=== PATIENT | female | born 1955 ===

== ENCOUNTER 2016-11-20 05:47 | Inpatient (IN) | payer OTHER ==
[~2016-11-20] VITALS: Ht 165.1 cm; Wt 98.9 kg
[2016-11-20] VITALS (29 sets, daily range): BP systolic 89–157; BP diastolic 52–99
[~2016-11-20 05:47] MED LIST: AMLODIPINE PO; NORCO 10-325 T1 EACH ORAL
[2016-11-20] MEDS ORDERED: Bacitracin 50000 Units Vial ONE ×2 (07:12→10:51)
[2016-11-20] MEDS ORDERED: NeoSporin Gu Irrig 1ml Amp IRRIG ONE ×2 (07:12→10:51)
--- NOTE | 2016-11-20 07:16 | Pre-Procedure Note/Attestation ---
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 I attest that, if there was a reasonable possibility of needing a blood transfusion, the patient (or the patient's legal claims representative) was given the [facility] standardized written summary, pursuant to the [place] Blood Safety Act ([place] Health and Safety Code # 1645, as amended). I attest that I re-evaluated the patient just prior to the surgery and that there has been no change in the patient's H&P, except as documented below: MARTHA JOHNSON Nov 20, 2016 07:16
[2016-11-20] MEDS ORDERED: LR 1000ml 1,000 ML IVLG SCH ×2 (08:18→13:00)
--- NOTE | 2016-11-20 08:24 | Anethesia Preoperative Eval ---
Anesthesia Pre-op PMH/ROS General Date of Evaluation: Nov 20, 2016 Time of Evaluation: 07:15 Anesthesiologist: Darrick ASA Score: ASA 2 Mallampati Score Class I : Soft palate, uvula, fauces, pillars visible Class II: Soft palate, uvula, fauces visible Class III: Soft palate, base of uvula visible Class IV: Only hard plate visible Mallampati Classification: Class II Surgeon: Morelia Diagnosis: Osteoarthritis Surgical Procedure: Total knee arthroplasty right knee Family History: no anesthesia problems Allergies: Coded Allergies: TRAMADOL (Verified Allergy, Intermediate, 11/20/16) RAPID HEART RATE AND DIFFICULTY BREATHING Medications: see eMAR Past Medical History Cardiovascular: Reports: HTN, Denies: CAD, [place], valve dz, arrhythmia, other Pulmonary: Denies: asthma, COPD, KAIN, other Gastrointestinal/Genitourinary: Denies: GERD, CRI, ESRD, other Neurologic/Psychiatric: Denies: dementia, CVA, depression/anxiety, TIA, other Endocrine: Denies: DM, hypothyroidism, steroids, other HEENT: Denies: cataract (L), cataract (R), glaucoma, [place] (L), [place] (R), other Hematology/Immune: Denies: anemia, DVT, bleeding disorder, other Musculoskeletal/Integumentary: Reports: DJD, Denies: OA, RA, DDD, edema, other PMH Narrative: DJD, HTN PSxH Narrative: Bilateral knee scope, right shoulder surgery Anesthesia Pre-op Phys. Exam Physician Exam Last Vital Signs Date Time Temp Pulse Resp B/P (MAP) Pulse Ox O2 Delivery O2 Flow Rate FiO2 11/20/16 06:25 97.8 70 18 135/84 93 Room Air Constitutional: NAD Neurologic: CN 2-12 intact Cardiovascular: RRR, no M/R/G Respiratory: CTA Gastrointestinal: S/NT/ND Airway Exam Mallampati Score: Class II MO: full ROM: full Teeth: intact Anesthesia Pre-op A/P Labs Within normal limits Studies Pre-op Studies: EKG - NSR Risk Assessment & Plan Assessment: Hypertensive female for total right knee arthroplasty Plan: GA, LMA Status Change Before Surgery: No Pre-Antibiotics Drug: Ancef Given Within 1 Hr of Incision: Yes LAVERN MCDONOUGH M.D. Nov 20, 2016 08:24
--- NOTE | 2016-11-20 08:25 | Immediate Post-Op Evaluation ---
Immediate Post-Op Evalulation Immediate Post-Op Evalulation Procedure: Total right knee arthroplasty Date of Evaluation: Nov 20, 2016 Time of Evaluation: 11:45 IV Fluids: 2000 Estimated Blood Loss: 70 Urinary Output: 70 Blood Pressure Systolic: 161 Blood Pressure Diastolic: 94 Pulse Rate: 117 Respiratory Rate: 22 O2 Sat by Pulse Oximetry: 100 Pain Score (1-10): 8 Nausea: No Vomiting: No Complications No complication but pain complaints in RR are 8/10. Will treat with Demerol, Ativan and Dilaudid is warranted. Patient Status: reacts, patent, none Hydration Status: adequate Drug: Ancef Given Within 1 Hr of Incision: Yes Time Given: 09:10 LAVERN MCDONOUGH M.D. Nov 20, 2016 08:25
[2016-11-20] MEDS ORDERED: DiphenhydrAMINE 50mg/ml Inj IVP PRN ×3 (08:30→13:00)
[2016-11-20] MEDS ORDERED: Hydromorphone 0.5mg/0.5ml inj IVP PRN ×2 (08:30→13:00)
[2016-11-20] MEDS ORDERED: LR 1000ml 1,000 ML IV SCH (08:30)
[2016-11-20] MEDS ORDERED: LORazepam Inj 2mg/ml 1ml IV PRN ×2 (08:30→13:00)
[2016-11-20] MEDS ORDERED: Sterile Water Irrig 1000ml IRRIG ONE (09:00)
[2016-11-20] MEDS ORDERED: Midazolam 2mg/2ml Inj ONE (09:00)
[2016-11-20] MEDS ORDERED: NS Irrig 4000ml IRRIG ONE (09:00)
[2016-11-20] MEDS ORDERED: LR 1000ml ONE (09:00)
[2016-11-20] MEDS ORDERED: Sodium Chloride 10ml vial INJ ONE (09:00)
[2016-11-20] MEDS ORDERED: Propofol 200mg/20ml IV ONE (09:00)
[2016-11-20] MEDS ORDERED: fentaNYL 100 mcg/2 mL IV ONE (09:00)
[2016-11-20] MEDS ORDERED: NS Irrig 1000ml ONE (09:00)
[2016-11-20] MEDS ORDERED: Lidocaine 1% MPF 10mg/ml 5ml ONE (09:00)
[2016-11-20] MEDS ORDERED: Ketorolac 30mg Inj ONE (09:00)
[2016-11-20] MEDS ORDERED: ePHEDrine 50mg/ml Inj ONE (09:00)
[2016-11-20] MEDS ORDERED: Milk of Magnesia 30ml Ud ORAL PRN (11:30)
[2016-11-20] MEDS ORDERED: LORazepam 1mg tab ORAL PRN (11:30)
[2016-11-20] MEDS ORDERED: Norco 5mg/325mg tab ORAL PRN (11:30)
[2016-11-20] MEDS: Meperidine 25mg/0.5ml Inj (FOR RIGORS ONLY) IV PRN ×2 (11:38→11:58)
--- NOTE | 2016-11-20 11:39 | Operative Note - PDOC ---
Operative Note Operative Note Pre-op Diagnosis: End Stage Degenerative Joint Disease Right Knee Procedure: Right Total Knee Resurface Post-op Diagnosis: same as pre-op Operative Findings: consistent w/pre-op dx studies Surgeon: Morelia Material Reprocessing Associate: ROXANNE Johnson Anesthesiologist: Darrick Anesthesia: general Specimen: yes Complications: none Condition: stable Estimated Blood Loss: minimal Drains: hemovac Tourniquet time: 70 - min Implant(s) used?: Yes - Nate Natural Knee MARTHA JOHNSON Nov 20, 2016 11:39
[2016-11-20] MEDS ORDERED: Rate Change PCA 1 Each MISC PRN (13:00)
[2016-11-20] MEDS ORDERED: Naloxone 0.4mg/ml Inj IVP PRN (13:00)
[2016-11-20] MEDS ORDERED: PCA HYDROmorphone 1mg/ml 30 ML IV PRN (13:00)
[2016-11-20] MEDS: Esmolol 100mg/10ml Inj IV PRN ×2 (13:20→13:35)
[2016-11-20] MEDS ORDERED: Esmolol 100mg/10ml Inj ONE (13:28)
[2016-11-20] MEDS ORDERED: dilTIAZem HCl 25mg/5ml Inj IV ONE (14:00)
[2016-11-20] MEDS ORDERED: ceFAZolin sod 1 GM in D5W 55 ML IV SCH (14:00)
[2016-11-20] MEDS ORDERED: Acetaminophen (Non formulary) 100 ML IV ONE ×2 (14:15)
--- NOTE | 2016-11-20 14:38 | Diagnostic Imaging Report ---
Indications: POST-OP Findings: 2 views of the right knee were obtained postoperatively. The cemented total knee arthroplasty is demonstrated. The alignment and position of the prosthetic is satisfactory. There are no abnormal interface lucencies or evidence of an acute fracture. Surgical skin francisca are noted. There is a drain in place. There is soft tissue swelling and air indicative of the recent surgery. Impression: Status post cemented right total knee arthroplasty. No radiographic evidence for complications
[2016-11-20] MEDS: D5 1/2NS w/KCl 20mEq 1,000 ML IV SCH (17:46)
[2016-11-20] MEDS: ceFAZolin 1gm in D5W 55ml IVPB SCH (17:47)
[2016-11-20] MEDS ORDERED: PCA Education Pamphlet MISC ONE (18:00)
[2016-11-20] MEDS: Docusate 100mg cap ORAL SCH (18:37)
[2016-11-20] MEDS: PCA shift volume MISC SCH (19:00)
--- NOTE | 2016-11-20 20:20 | Critical Care Progress Note ---
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 incentive spirometry and monitor rhythm; prior Echo reviewed 2. Lovenox in am 3. PT evaluation and therapy 4. Hydration 5. Pain management 6. discharge once stable with outpatient follow up medications/laboratory data/nursing notes/ICU care reviewed in detail note reviewed and edited care discussed with RN and RT Critical Care - Subjective Interval Events: care noted had rapid afib now in NSR seen earlier EKG Rhythm: Sinus Rhythm I&O: Intake and Output 11/20/16 11/21/16 19:00 07:00 Intake Total 1868 ml 50 ml Output Total 970 ml 30 ml Balance 898 ml 20 ml Intake Oral 0 ml 50 ml IV Total 1868 ml Output Urine Total 920 ml 30 ml Estimated Blood Loss 50 ml Critical Care - Objective Last 24 Hour Vital Signs Date Time Temp Pulse Resp B/P (MAP) Pulse Ox O2 Delivery O2 Flow Rate FiO2 11/20/16 19:45 21 11/20/16 18:15 98.5 11/20/16 18:00 95 18 89/60 96 Nasal Cannula 3.0 11/20/16 17:00 96 20 102/76 100 Nasal Cannula 3.0 11/20/16 16:00 95 11/20/16 16:00 95 20 94/61 97 Nasal Cannula 3.0 11/20/16 16:00 20 11/20/16 15:25 20 11/20/16 14:55 97.6 11/20/16 14:55 97.6 11/20/16 14:55 18 11/20/16 14:50 98.5 153 25 121/83 98 Nasal Cannula 3.0 11/20/16 14:29 97.6 152 23 117/76 97 Nasal Cannula 3.0 11/20/16 14:18 97.4 11/20/16 14:15 149 24 98/76 97 Nasal Cannula 3.0 11/20/16 14:05 119 25 132/70 97 Nasal Cannula 3.0 11/20/16 14:05 152 137/70 11/20/16 14:04 97.4 11/20/16 14:02 97.4 11/20/16 13:55 153 24 127/89 98 Nasal Cannula 3.0 11/20/16 13:45 137 17 109/70 97 Nasal Cannula 3.0 11/20/16 13:30 124 25 129/65 97 Nasal Cannula 3.0 11/20/16 13:20 140 16 118/66 99 Nasal Cannula 3.0 11/20/16 13:15 18 11/20/16 13:10 88 16 123/65 99 Nasal Cannula 3.0 11/20/16 13:00 104 23 133/75 99 Nasal Cannula 3.0 11/20/16 13:00 23 11/20/16 12:55 103 22 126/83 99 Nasal Cannula 3.0 11/20/16 12:45 109 23 155/78 96 Nasal Cannula 3.0 11/20/16 12:45 23 11/20/16 12:35 22 11/20/16 12:35 109 23 138/85 98 Nasal Cannula 3.0 11/20/16 12:27 97.2 11/20/16 12:25 99 24 133/71 98 Simple Mask 6.0 11/20/16 12:10 71 20 116/64 99 Simple Mask 6.0 11/20/16 12:00 69 18 144/78 100 Simple Mask 6.0 11/20/16 11:55 98 21 144/78 100 Simple Mask 6.0 11/20/16 11:45 114 23 140/80 100 Simple Mask 6.0 11/20/16 11:44 117 22 100 11/20/16 11:40 117 24 157/93 100 Simple Mask 6.0 11/20/16 11:35 97.2 120 22 146/99 100 Simple Mask 6.0 11/20/16 06:25 97.8 70 18 135/84 93 Room Air Objective: WDWN NAD clear breath sounds bilaterally without rhonchi or wheeze [id number] without MRG NABS nontender no HSM no CCE nonfocal CATRACHITA EARLY Nov 20, 2016 20:20
[2016-11-21] VITALS (18 sets, daily range): BP systolic 90–134; BP diastolic 43–95
[2016-11-21] MEDS: ceFAZolin 1gm in D5W 55ml IVPB SCH (02:04)
[2016-11-21] MEDS: D5 1/2NS w/KCl 20mEq 1,000 ML IV SCH ×2 (05:45→17:50)
[2016-11-21 06:13] LABS: BASOPHILS % (AUTO) 0.8 % (0.0-2.0); EOSINOPHILS % (AUTO) 0.4 % (0.0-3.0); LYMPHOCYTES % (AUTO) 15.2 % (20.0-45.0); MEAN CORPUSCULAR HEMOGLOBIN 30.4 PG (27.0-31.0); MEAN CORPUSCULAR HGB CONC 33.8 G/DL (32.0-36.0); MEAN CORPUSCULAR VOLUME 90 FL (80-99); MEAN PLATELET VOLUME 7.4 FL (6.5-10.1); MONOCYTES % (AUTO) 8.4 % (1.0-10.0); NEUTROPHILS % (AUTO) 75.3 % (45.0-75.0); PLATELET COUNT 211 K/UL (150-450); RED BLOOD COUNT 3.98 M/UL (4.20-5.40); RED CELL DISTRIBUTION WIDTH 11.8 % (11.6-14.8); WHITE BLOOD COUNT 8.1 K/UL (4.8-10.8)
[2016-11-21 06:25] LABS: TROPONIN I < 0.30 ng/mL (<=0.30)
[2016-11-21 06:27] LABS: ANION GAP 9 (5-15); CALCIUM 8.4 mg/dL (8.6-10.2); CARBON DIOXIDE 28 mEQ/L (20-30); CHLORIDE 100 mEQ/L (98-107); CREATININE 0.7 mg/dL (0.5-0.9); GLOMERULAR FILTRATION RATE > 60 mL/min (>60); HEMOLYSIS 0; POTASSIUM 4.1 mEQ/L (3.4-4.9); SODIUM 137 mEQ/L (135-145)
[2016-11-21] MEDS: PCA shift volume MISC SCH ×2 (07:00→19:24)
[2016-11-21] MEDS: Docusate 100mg cap ORAL SCH ×3 (08:24→17:53)
--- NOTE | 2016-11-21 08:30 | Operative Note - Dictated ---
DATE OF OPERATION: 11/20/2016 SURGEON: Aneudy Thibodeaux M.D. PEN TENDER: Juan Mccallum ANESTHESIA: Dr. Hollingsworth, general endotracheal. Preoperative Diagnosis: Tricompartmental traumatic arthritis, right knee with severe synovitis, a 20-degree varus deformity and a 20-degree flexion contracture. Postoperative Diagnosis: Tricompartmental traumatic arthritis, right knee with severe synovitis, a 20-degree varus deformity and a 20-degree flexion contracture. Operative Procedure: Total knee resurfacing arthroplasty using a Nate natural knee with ingrowth femoral and tibial components and all polyethylene size #1, 7 millimeter cemented patella. The tibial base plate was size 1 with a 9 millimeter polyethylene insert, cruciate saving. The femoral component was a size #2. Also done was a lateral retinacular release for patellar realignment. The patient was brought to the operating room, and transferred to the table. She was anesthetized in supine position. Examination of the knee revealed a flexion deformity of 20 to 25 degrees of the rubbery endpoint. There was no varus valgus instability, but a 20-degree varus alignment was also noted. The table was prepared with a flexion block to the knee and with lateral bolster to prevent external rotation of the thigh when the knee was being dressed in a flexed position, the pelvis was also neutralized with a sandbag under the right buttock to keep the knee in neutral rotation. Knee was then prepped and draped freely and a medial parapatellar incision was made. Incision was carried down through skin, subcutaneous tissue to the extensor apparatus, which was divided median parapatellar. The incision was carried along the medial infrapatellar ligament and superiorly the quads tendon was split centrally. A lateral retinacular release was accomplished so that the patella could be rotated 180 degrees exposing its articular surface. The fat pad and hypertrophic synovium was removed. The outline of the articular margins of the patella was defined with cautery. There was severe erosion on most contact areas of the patella with prominent marginal osteophytes. Patella alignment jig was applied and the patella cut was made. The surface was plained and anchoring holes were made for a size #1 All Poly 7 millimeter patella. This fit well with good contact at all margins. The medial ligaments were then released. The semimembranosus as well as the superficial medial collateral and posterior medial capsule was released in order to observe the posterior femur in flexion. Hypertrophic synovium from the suprapatellar pouch was removed to allow visualization directly the anterior cortex of the distal femur. The distal femoral alignment, intramedullary drill was then used to cannulate the intramedullary canal. An outrigger was used to make sure that the cut was aligned to the weightbearing axis and match the calculations from the preoperative weightbearing x-ray. Once the alignment jig was thought to be in a satisfactory position, the distal extension cut on the femur was then marked and cut over a cutting block. The anterior-posterior chamfer and notch cuts were similarly made for a size 2 femur. A trial reduction revealed good contact fit at all margins with good overall alignment stability. The tibia was then brought forward with a Valentino knee retractor. Remnants of meniscus were removed and the posterior cruciate ligament was recessed from the surface back to the its origin from the posterior tibia. A tibial alignment jig was then inserted and it was aligned for weightbearing axis, slope, and rotation. Once the cutting block was in place, an alignment jig was used to make sure that the cut across monitor that from the preoperative weightbearing films did and the proximal tibial cut was made. A anchor hole was made centrally. The peripheral holes were then also drilled and a trial reduction of the tibia with a 9 millimeter congruent polyethylene revealed full extension of the smooth tracking and correction of the varus deformity. The components were then placed, first the tibia with two 35 millimeter APR screws and a 9 millimeter congruent polyethylene. The femur was tapped into place. Also alignment checked for range of motion and stability. The patella was then cemented into place. All excess cement was removed. Tracking and stability were again checked. The tourniquet was released. Bleeders were coagulated. The medial ligament and capsule were closed with interrupted sutures with #1 Vicryl, subcutaneous with 2-0 and the skin with francisca. Medium Hemovac was left in the opening caused by the lateral retinacular release. Blood loss was approximately 150 mL. The patient was placed in a compression dressing. Returned to recovery room in good condition. Aneudy Thibodeaux M.D. DR: RACHNA JOB#: [id number] CC: ANA CRISTINA
--- NOTE | 2016-11-21 09:25 | 48 Hour Post Anesthesia Eval ---
Post Anesthesia Evaluation Procedure: Total right knee arthroplasty Date of Evaluation: Nov 21, 2016 Time of Evaluation: 13:05 Blood Pressure Systolic: 110 0: 63 Pulse Rate: 86 Respiratory Rate: 14 Temperature (Fahrenheit): 98.1 O2 Sat by Pulse Oximetry: 99 Airway: patent Nausea: No Vomiting: No Pain Intensity: 4 Hydration Status: adequate Cardiopulmonary Status: Episode of rapid AFIB in PACU given Cardizem 10mg. Converted back to NSR. Mental Status/LOC: patient returned to baseline Follow-up Care/Observations: As per surgery and cardiology. Post-Anesthesia Complications: No anesthetic complication. Follow-up care needed: N/A LAVERN MCDONOUGH M.D. Nov 21, 2016 09:24
--- NOTE | 2016-11-21 09:37 | Critical Care Progress Note ---
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 incentive spirometry and monitor rhythm; ECG with NSR 2. Lovenox today 3. PT evaluation and therapy 4. Hydration 5. Pain management and antiemetics 6. discharge once stable with outpatient follow up; for now, transfer to medications/laboratory data/nursing notes/ICU care reviewed in detail note reviewed and edited care discussed with RN and RT Critical Care - Subjective Interval Events: d/w nursing no acute issues NSR has pain and nausea Condition: improving EKG Rhythm: Sinus Rhythm I&O: Intake and Output 11/21/16 11/22/16 19:00 07:00 Intake Total 400 ml Output Total 80 ml Balance 320 ml Intake Oral 250 ml IV Total 150 ml Output Urine Total 80 ml Critical Care - Objective Last 24 Hour Vital Signs Date Time Temp Pulse Resp B/P (MAP) Pulse Ox O2 Delivery O2 Flow Rate FiO2 11/21/16 09:24 86 14 99 11/21/16 09:00 86 14 110/63 99 Nasal Cannula 3.0 11/21/16 08:00 78 11/21/16 08:00 98.1 81 15 124/57 99 Nasal Cannula 3.0 11/21/16 07:00 82 14 119/57 99 Nasal Cannula 3.0 11/21/16 07:00 98.7 11/21/16 07:00 20 11/21/16 06:00 87 18 129/63 94 Nasal Cannula 3.0 11/21/16 05:00 91 18 120/95 98 Nasal Cannula 3.0 11/21/16 04:00 87 11/21/16 04:00 98.0 87 17 104/57 96 Nasal Cannula 3.0 11/21/16 03:45 15 11/21/16 03:00 84 16 111/63 95 Nasal Cannula 3.0 11/21/16 02:00 81 13 90/52 95 Nasal Cannula 3.0 11/21/16 01:00 89 18 134/72 94 Nasal Cannula 3.0 11/21/16 00:00 97.9 87 17 119/59 94 Nasal Cannula 3.0 11/20/16 23:45 20 11/20/16 23:00 84 19 100/52 96 Nasal Cannula 3.0 11/20/16 22:00 103 17 100/52 96 Nasal Cannula 3.0 11/20/16 21:00 88 23 116/57 98 Nasal Cannula 3.0 11/20/16 20:00 87 11/20/16 20:00 97.8 93 19 98/60 96 Nasal Cannula 3.0 11/20/16 19:45 21 11/20/16 19:00 96 16 99/61 92 Nasal Cannula 3.0 11/20/16 18:00 95 18 89/60 96 Nasal Cannula 3.0 11/20/16 17:00 96 20 102/76 100 Nasal Cannula 3.0 11/20/16 16:00 95 11/20/16 16:00 95 20 94/61 97 Nasal Cannula 3.0 11/20/16 16:00 20 11/20/16 15:25 20 11/20/16 14:55 97.6 11/20/16 14:55 97.6 11/20/16 14:55 18 11/20/16 14:50 98.5 153 25 121/83 98 Nasal Cannula 3.0 11/20/16 14:29 97.6 152 23 117/76 97 Nasal Cannula 3.0 11/20/16 14:18 97.4 11/20/16 14:15 149 24 98/76 97 Nasal Cannula 3.0 11/20/16 14:05 119 25 132/70 97 Nasal Cannula 3.0 11/20/16 14:05 152 137/70 11/20/16 14:04 97.4 11/20/16 14:02 97.4 11/20/16 13:55 153 24 127/89 98 Nasal Cannula 3.0 11/20/16 13:45 137 17 109/70 97 Nasal Cannula 3.0 11/20/16 13:30 124 25 129/65 97 Nasal Cannula 3.0 11/20/16 13:20 140 16 118/66 99 Nasal Cannula 3.0 11/20/16 13:15 18 11/20/16 13:10 88 16 123/65 99 Nasal Cannula 3.0 11/20/16 13:00 104 23 133/75 99 Nasal Cannula 3.0 11/20/16 13:00 23 11/20/16 12:55 103 22 126/83 99 Nasal Cannula 3.0 11/20/16 12:45 109 23 155/78 96 Nasal Cannula 3.0 11/20/16 12:45 23 11/20/16 12:35 22 11/20/16 12:35 109 23 138/85 98 Nasal Cannula 3.0 11/20/16 12:27 97.2 11/20/16 12:25 99 24 133/71 98 Simple Mask 6.0 11/20/16 12:10 71 20 116/64 99 Simple Mask 6.0 11/20/16 12:00 69 18 144/78 100 Simple Mask 6.0 11/20/16 11:55 98 21 144/78 100 Simple Mask 6.0 11/20/16 11:45 114 23 140/80 100 Simple Mask 6.0 11/20/16 11:44 117 22 100 11/20/16 11:40 117 24 157/93 100 Simple Mask 6.0 11/20/16 11:35 97.2 120 22 146/99 100 Simple Mask 6.0 Labs: Labs Test 11/21/16 04:40 White Blood Count 8.1 K/UL (4.8-10.8) Red Blood Count 3.98 M/UL (4.20-5.40) Hemoglobin 12.1 G/DL (12.0-16.0) Hematocrit 35.8 % (37.0-47.0) Mean Corpuscular Volume 90 FL (80-99) Mean Corpuscular Hemoglobin 30.4 PG (27.0-31.0) Mean Corpuscular Hemoglobin Concent 33.8 G/DL (32.0-36.0) Red Cell Distribution Width 11.8 % (11.6-14.8) Platelet Count 211 K/UL (150-450) Mean Platelet Volume 7.4 FL (6.5-10.1) Neutrophils (%) (Auto) 75.3 % (45.0-75.0) Lymphocytes (%) (Auto) 15.2 % (20.0-45.0) Monocytes (%) (Auto) 8.4 % (1.0-10.0) Eosinophils (%) (Auto) 0.4 % (0.0-3.0) Basophils (%) (Auto) 0.8 % (0.0-2.0) Sodium Level 137 mEQ/L (135-145) Potassium Level 4.1 mEQ/L (3.4-4.9) Chloride Level 100 mEQ/L (98-107) Carbon Dioxide Level 28 mEQ/L (20-30) Anion Gap 9 (5-15) Blood Urea Nitrogen 11 mg/dL (7-23) Creatinine 0.7 mg/dL (0.5-0.9) Estimat Glomerular Filtration Rate > 60 mL/min (>60) Glucose Level 134 mg/dL (74-106) Calcium Level 8.4 mg/dL (8.6-10.2) Troponin I < 0.30 ng/mL (<=0.30) Objective: WDWN NAD clear breath sounds bilaterally without rhonchi or wheeze [id number] without MRG NABS nontender no HSM no CCE nonfocal CATRACHITA EARLY Nov 21, 2016 09:37
--- NOTE | 2016-11-21 11:09 | General Surgery Progress Note ---
General Surgery-Progress Note Subjective Procedure Performed Right Total Knee Resurface Symptoms: improved Objective Last 24 Hour Vital Signs Date Time Temp Pulse Resp B/P (MAP) Pulse Ox O2 Delivery O2 Flow Rate FiO2 11/21/16 10:00 85 16 109/58 99 Nasal Cannula 3.0 11/21/16 09:24 86 14 99 11/21/16 09:00 86 14 110/63 99 Nasal Cannula 3.0 11/21/16 08:00 78 11/21/16 08:00 98.1 81 15 124/57 99 Nasal Cannula 3.0 11/21/16 07:00 82 14 119/57 99 Nasal Cannula 3.0 11/21/16 07:00 98.7 11/21/16 07:00 20 11/21/16 06:00 87 18 129/63 94 Nasal Cannula 3.0 11/21/16 05:00 91 18 120/95 98 Nasal Cannula 3.0 11/21/16 04:00 87 11/21/16 04:00 98.0 87 17 104/57 96 Nasal Cannula 3.0 11/21/16 03:45 15 11/21/16 03:00 84 16 111/63 95 Nasal Cannula 3.0 11/21/16 02:00 81 13 90/52 95 Nasal Cannula 3.0 11/21/16 01:00 89 18 134/72 94 Nasal Cannula 3.0 11/21/16 00:00 97.9 87 17 119/59 94 Nasal Cannula 3.0 11/20/16 23:45 20 11/20/16 23:00 84 19 100/52 96 Nasal Cannula 3.0 11/20/16 22:00 103 17 100/52 96 Nasal Cannula 3.0 11/20/16 21:00 88 23 116/57 98 Nasal Cannula 3.0 11/20/16 20:00 87 11/20/16 20:00 97.8 93 19 98/60 96 Nasal Cannula 3.0 11/20/16 19:45 21 11/20/16 19:00 96 16 99/61 92 Nasal Cannula 3.0 11/20/16 18:00 95 18 89/60 96 Nasal Cannula 3.0 11/20/16 17:00 96 20 102/76 100 Nasal Cannula 3.0 11/20/16 16:00 95 11/20/16 16:00 95 20 94/61 97 Nasal Cannula 3.0 11/20/16 16:00 20 11/20/16 15:25 20 11/20/16 14:55 97.6 11/20/16 14:55 97.6 11/20/16 14:55 18 11/20/16 14:50 98.5 153 25 121/83 98 Nasal Cannula 3.0 11/20/16 14:29 97.6 152 23 117/76 97 Nasal Cannula 3.0 11/20/16 14:18 97.4 11/20/16 14:15 149 24 98/76 97 Nasal Cannula 3.0 11/20/16 14:05 119 25 132/70 97 Nasal Cannula 3.0 11/20/16 14:05 152 137/70 11/20/16 14:04 97.4 11/20/16 14:02 97.4 11/20/16 13:55 153 24 127/89 98 Nasal Cannula 3.0 11/20/16 13:45 137 17 109/70 97 Nasal Cannula 3.0 11/20/16 13:30 124 25 129/65 97 Nasal Cannula 3.0 11/20/16 13:20 140 16 118/66 99 Nasal Cannula 3.0 11/20/16 13:15 18 11/20/16 13:10 88 16 123/65 99 Nasal Cannula 3.0 11/20/16 13:00 104 23 133/75 99 Nasal Cannula 3.0 11/20/16 13:00 23 11/20/16 12:55 103 22 126/83 99 Nasal Cannula 3.0 11/20/16 12:45 109 23 155/78 96 Nasal Cannula 3.0 11/20/16 12:45 23 11/20/16 12:35 22 11/20/16 12:35 109 23 138/85 98 Nasal Cannula 3.0 11/20/16 12:27 97.2 11/20/16 12:25 99 24 133/71 98 Simple Mask 6.0 11/20/16 12:10 71 20 116/64 99 Simple Mask 6.0 11/20/16 12:00 69 18 144/78 100 Simple Mask 6.0 11/20/16 11:55 98 21 144/78 100 Simple Mask 6.0 11/20/16 11:45 114 23 140/80 100 Simple Mask 6.0 11/20/16 11:44 117 22 100 10/2/17 11:40 117 24 157/93 100 Simple Mask 6.0 11/20/16 11:35 97.2 120 22 146/99 100 Simple Mask 6.0 I&O Intake and Output 11/21/16 11/22/16 19:00 07:00 Intake Total 475 ml Output Total 110 ml Balance 365 ml Intake Oral 250 ml IV Total 225 ml Output Urine Total 110 ml Dressing: dry Wound: clean Drains: hemovac Laboratory Tests Test 11/21/16 04:40 White Blood Count 8.1 K/UL (4.8-10.8) Red Blood Count 3.98 M/UL (4.20-5.40) L Hemoglobin 12.1 G/DL (12.0-16.0) Hematocrit 35.8 % (37.0-47.0) L Mean Corpuscular Volume 90 FL (80-99) Mean Corpuscular Hemoglobin 30.4 PG (27.0-31.0) Mean Corpuscular Hemoglobin Concent 33.8 G/DL (32.0-36.0) Red Cell Distribution Width 11.8 % (11.6-14.8) Platelet Count 211 K/UL (150-450) Mean Platelet Volume 7.4 FL (6.5-10.1) Neutrophils (%) (Auto) 75.3 % (45.0-75.0) H Lymphocytes (%) (Auto) 15.2 % (20.0-45.0) L Monocytes (%) (Auto) 8.4 % (1.0-10.0) Eosinophils (%) (Auto) 0.4 % (0.0-3.0) Basophils (%) (Auto) 0.8 % (0.0-2.0) Sodium Level 137 mEQ/L (135-145) Potassium Level 4.1 mEQ/L (3.4-4.9) Chloride Level 100 mEQ/L (98-107) Carbon Dioxide Level 28 mEQ/L (20-30) Anion Gap 9 (5-15) Blood Urea Nitrogen 11 mg/dL (7-23) Creatinine 0.7 mg/dL (0.5-0.9) Estimat Glomerular Filtration Rate > 60 mL/min (>60) Glucose Level 134 mg/dL (74-106) H Calcium Level 8.4 mg/dL (8.6-10.2) L Troponin I < 0.30 ng/mL (<=0.30) Additional Comments Cardiac stable overnight. Dr. Porter following. Transfer to orthopedic floor when acceptable with IM. Resume orthopedic post op care for TKR recovery. X-Ray Right knee 11/20/16: good position of implants. MARTHA JOHNSON Nov 21, 2016 11:09
[2016-11-21] MEDS ORDERED: Naloxone 0.4mg/ml Inj IVP PRN (16:00)
[2016-11-21] MEDS ORDERED: LORazepam 1mg tab ORAL PRN (16:30)
[2016-11-21] MEDS ORDERED: Rate Change PCA 1 Each MISC PRN (16:30)
[2016-11-21] MEDS ORDERED: DiphenhydrAMINE 50mg/ml Inj IVP PRN (16:30)
--- NOTE | 2016-11-21 17:58 | Cardiology Report ---
APPROVED REPORT EKG Measurement Heart [id number] Normal sinus rhythm Normal ECG
[2016-11-21] MEDS: PCA HYDROmorphone 1mg/ml 30 ML IV PRN (20:30)
[2016-11-22 00:43] VITALS: BP 116/57
[2016-11-22 04:30] VITALS: BP 149/85
[2016-11-22 07:00] LABS: BASOPHILS % (AUTO) 0.8 % (0.0-2.0); EOSINOPHILS % (AUTO) 1.2 % (0.0-3.0); LYMPHOCYTES % (AUTO) 19.9 % (20.0-45.0); MEAN CORPUSCULAR HEMOGLOBIN 31.1 PG (27.0-31.0); MEAN CORPUSCULAR HGB CONC 34.5 G/DL (32.0-36.0); MEAN CORPUSCULAR VOLUME 90 FL (80-99); MONOCYTES % (AUTO) 6.9 % (1.0-10.0); NEUTROPHILS % (AUTO) 71.1 % (45.0-75.0); PLATELET COUNT 186 K/UL (150-450); RED BLOOD COUNT 3.58 M/UL (4.20-5.40); RED CELL DISTRIBUTION WIDTH 11.4 % (11.6-14.8); WHITE BLOOD COUNT 8.8 K/UL (4.8-10.8)
[2016-11-22] MEDS: D5 1/2NS w/KCl 20mEq 1,000 ML IV SCH ×2 (07:20→21:40)
[2016-11-22] MEDS: PCA shift volume MISC SCH ×2 (07:20→19:18)
[2016-11-22 08:00] VITALS: BP 114/73
--- NOTE | 2016-11-22 08:34 | Critical Care Progress Note ---
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 incentive spirometry and monitor rhythm; 2. Lovenox daily 3. PT evaluation and therapy 4. Hydration 5. Pain management and antiemetics 6. discharge once stable with outpatient follow up; Critical Care - Subjective Interval Events: transferred to floor no distress Condition: improving EKG Rhythm: Sinus Rhythm Critical Care - Objective Last 24 Hour Vital Signs Date Time Temp Pulse Resp B/P (MAP) Pulse Ox O2 Delivery O2 Flow Rate FiO2 11/22/16 04:30 97.9 91 18 149/85 98 Nasal Cannula 2.0 11/22/16 04:00 18 11/22/16 00:43 98.0 78 18 116/57 98 Nasal Cannula 2.0 11/22/16 00:00 19 11/21/16 22:08 93 2.0 28 11/21/16 21:00 98.0 11/21/16 20:32 18 11/21/16 20:30 18 11/21/16 20:16 98.0 75 19 107/58 94 Nasal Cannula 2.0 11/21/16 19:30 92 Nasal Cannula 2.0 28 11/21/16 19:30 Nasal Cannula 2.0 28 11/21/16 17:28 98.6 79 20 130/66 95 Nasal Cannula 11/21/16 15:45 17 11/21/16 15:00 94 16 112/60 98 Nasal Cannula 3.0 11/21/16 14:00 80 14 120/75 97 Nasal Cannula 3.0 11/21/16 13:00 81 14 92/43 93 Nasal Cannula 3.0 11/21/16 12:00 82 11/21/16 12:00 98.2 83 14 123/80 96 Nasal Cannula 3.0 11/21/16 11:45 18 11/21/16 11:00 83 15 98/51 96 Nasal Cannula 3.0 11/21/16 10:00 85 16 109/58 99 Nasal Cannula 3.0 11/21/16 09:24 86 14 99 11/21/16 09:00 86 14 110/63 99 Nasal Cannula 3.0 Objective: WDWN NAD clear breath sounds bilaterally without rhonchi or wheeze [id number] without MRG NABS nontender no HSM no CCE nonfocal CATRACHITA EARLY Nov 22, 2016 08:34
[2016-11-22] MEDS: Docusate 100mg cap ORAL SCH ×4 (09:00→17:08)
[2016-11-22] MEDS: Enoxaparin 40mg Inj SUBQ SCH ×2 (09:00→11:44)
[2016-11-22] MEDS ORDERED: Enoxaparin 40mg Inj SUBQ SCH (09:00)
[2016-11-22] MEDS ORDERED: Milk of Magnesia 30ml Ud ORAL PRN (11:30)
[2016-11-22 12:00] VITALS: BP 126/65
[2016-11-22 16:00] VITALS: BP 133/72
[2016-11-22 20:22] VITALS: BP 131/69
[2016-11-22] MEDS: PCA HYDROmorphone 1mg/ml 30 ML IV PRN (21:00)
[2016-11-23 00:35] VITALS: BP 119/61
[2016-11-23 04:00] VITALS: BP 129/69
[2016-11-23] MEDS: PCA shift volume MISC SCH (07:09)
[2016-11-23 07:12] LABS: MEAN CORPUSCULAR HEMOGLOBIN 28.9 PG (27.0-31.0); MEAN CORPUSCULAR HGB CONC 31.1 G/DL (32.0-36.0); MEAN CORPUSCULAR VOLUME 93 FL (80-99); MEAN PLATELET VOLUME 7.2 FL (6.5-10.1); PLATELET COUNT 189 K/UL (150-450); RED BLOOD COUNT 3.49 M/UL (4.20-5.40); RED CELL DISTRIBUTION WIDTH 11.4 % (11.6-14.8); WHITE BLOOD COUNT 7.1 K/UL (4.8-10.8)
[2016-11-23 07:58] VITALS: BP 130/81
[2016-11-23 08:30] LABS: BAND NEUTROPHILS % (MANUAL) 0 % (0-8); BASOPHILS % (MANUAL) 0 % (0-2); EOSINOPHILS % (MANUAL) 1 % (0-3); HYPOCHROMASIA 1+; LYMPHOCYTES % (MANUAL) 34 % (20-45); NEUTROPHILS % (MANUAL) 57 % (45-75); PLATELET ESTIMATE ADEQUATE; PLATELET MORPHOLOGY NORMAL; TOTAL CELLS COUNTED 100
--- NOTE | 2016-11-23 08:30 | Critical Care Progress Note ---
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 incentive spirometry and monitor rhythm; 2. Lovenox daily 3. PT evaluation and therapy 4. Hydration-may dc 5. 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 discharge once stable with outpatient follow up; possibly in am Critical Care - Subjective Interval Events: overall well drain with 70cc overnight ambulating EKG Rhythm: Sinus Rhythm I&O: Intake and Output 11/23/16 11/24/16 19:00 07:00 Intake Total 240 ml Balance 240 ml Intake Oral 240 ml Critical Care - Objective Last 24 Hour Vital Signs Date Time Temp Pulse Resp B/P (MAP) Pulse Ox O2 Delivery O2 Flow Rate FiO2 11/23/16 08:00 19 11/23/16 07:58 98.1 84 20 130/81 96 Nasal Cannula 2.0 11/23/16 04:00 97.9 80 19 129/69 95 Room Air 11/23/16 04:00 18 11/23/16 00:35 97.5 74 17 119/61 96 Room Air 11/23/16 00:00 19 11/22/16 21:00 18 11/22/16 20:22 98.3 87 18 131/69 93 Room Air 11/22/16 20:00 19 11/22/16 19:30 Room Air 21 11/22/16 19:30 92 Room Air 21 11/22/16 16:00 97.6 91 20 133/72 93 Room Air 11/22/16 16:00 18 11/22/16 12:00 98.5 94 19 126/65 96 Nasal Cannula 2.0 11/22/16 12:00 18 11/22/16 09:10 Nasal Cannula 2.0 28 11/22/16 09:10 94 Nasal Cannula 2.0 28 11/22/16 08:50 18 Labs: Laboratory Tests Test 11/23/16 05:50 White Blood Count 7.1 K/UL (4.8-10.8) Red Blood Count 3.49 M/UL (4.20-5.40) L Hemoglobin 10.1 G/DL (12.0-16.0) L Hematocrit 32.4 % (37.0-47.0) L Mean Corpuscular Volume 93 FL (80-99) Mean Corpuscular Hemoglobin 28.9 PG (27.0-31.0) Mean Corpuscular Hemoglobin Concent 31.1 G/DL (32.0-36.0) L Red Cell Distribution Width 11.4 % (11.6-14.8) L Platelet Count 189 K/UL (150-450) Mean Platelet Volume 7.2 FL (6.5-10.1) Neutrophils (%) (Auto) % (45.0-75.0) Lymphocytes (%) (Auto) % (20.0-45.0) Monocytes (%) (Auto) % (1.0-10.0) Eosinophils (%) (Auto) % (0.0-3.0) Basophils (%) (Auto) % (0.0-2.0) Neutrophils % (Manual) Pending Lymphocytes % (Manual) Pending Platelet Estimate Pending Platelet Morphology Pending Objective: WDWN NAD clear breath sounds bilaterally without rhonchi or wheeze [id number] without MRG NABS nontender no HSM no CCE nonfocal CATRACHITA EARLY Nov 23, 2016 08:30
[2016-11-23] MEDS: Docusate 100mg cap ORAL SCH ×3 (08:33→18:00)
[2016-11-23] MEDS: Enoxaparin 40mg Inj SUBQ SCH (08:34)
--- NOTE | 2016-11-23 10:14 | General Surgery Progress Note ---
General Surgery-Progress Note Subjective Procedure Performed Right Total Knee Resurface Symptoms: improved Objective Last 24 Hour Vital Signs Date Time Temp Pulse Resp B/P (MAP) Pulse Ox O2 Delivery O2 Flow Rate FiO2 11/23/16 08:00 19 11/23/16 07:58 98.1 84 20 130/81 96 Nasal Cannula 2.0 11/23/16 06:47 98 Nasal Cannula 2.0 11/23/16 06:47 Nasal Cannula 2.0 11/23/16 04:00 97.9 80 19 129/69 95 Room Air 11/23/16 04:00 18 11/23/16 00:35 97.5 74 17 119/61 96 Room Air 11/23/16 00:00 19 11/22/16 21:00 18 11/22/16 20:22 98.3 87 18 131/69 93 Room Air 11/22/16 20:00 19 11/22/16 19:30 Room Air 21 11/22/16 19:30 92 Room Air 21 11/22/16 16:00 97.6 91 20 133/72 93 Room Air 11/22/16 16:00 18 11/22/16 12:00 98.5 94 19 126/65 96 Nasal Cannula 2.0 11/22/16 12:00 18 I&O Intake and Output 11/23/16 11/24/16 19:00 07:00 Intake Total 240 ml Balance 240 ml Intake Oral 240 ml Dressing: dry Wound: clean Drains: hemovac Laboratory Tests Test 11/23/16 05:50 White Blood Count 7.1 K/UL (4.8-10.8) Red Blood Count 3.49 M/UL (4.20-5.40) L Hemoglobin 10.1 G/DL (12.0-16.0) L Hematocrit 32.4 % (37.0-47.0) L Mean Corpuscular Volume 93 FL (80-99) Mean Corpuscular Hemoglobin 28.9 PG (27.0-31.0) Mean Corpuscular Hemoglobin Concent 31.1 G/DL (32.0-36.0) L Red Cell Distribution Width 11.4 % (11.6-14.8) L Platelet Count 189 K/UL (150-450) Mean Platelet Volume 7.2 FL (6.5-10.1) Neutrophils (%) (Auto) % (45.0-75.0) Lymphocytes (%) (Auto) % (20.0-45.0) Monocytes (%) (Auto) % (1.0-10.0) Eosinophils (%) (Auto) % (0.0-3.0) Basophils (%) (Auto) % (0.0-2.0) Differential Total Cells Counted 100 Neutrophils % (Manual) 57 % (45-75) Lymphocytes % (Manual) 34 % (20-45) Monocytes % (Manual) 8 % (1-10) Eosinophils % (Manual) 1 % (0-3) Basophils % (Manual) 0 % (0-2) Band Neutrophils 0 % (0-8) Platelet Estimate Adequate Platelet Morphology Normal Hypochromasia 1+ Additional Comments Hemovac 70cc overnight. Poss D/C in AM. Dr. Porter following. with possible discharge tomorrow based on overall progress. MARTHA JOHNSON Nov 23, 2016 10:14
[2016-11-23] MEDS: Norco 5mg/325mg tab ORAL PRN ×3 (11:21→22:00)
[2016-11-23 11:50] VITALS: BP 111/85
[2016-11-23 15:50] VITALS: BP 112/61
[2016-11-23] MEDS ORDERED: Norco 5mg/325mg tab ORAL PRN (16:30)
[2016-11-23 20:00] VITALS: BP 125/63
[2016-11-24] MEDS: Norco 5mg/325mg tab ORAL PRN ×3 (02:44→18:02)
[2016-11-24 04:00] VITALS: BP 154/86
[2016-11-24 08:34] VITALS: BP 100/81
[2016-11-24] MEDS: Docusate 100mg cap ORAL SCH ×3 (08:36→17:28)
[2016-11-24] MEDS: Enoxaparin 40mg Inj SUBQ SCH (08:39)
--- NOTE | 2016-11-24 11:44 | General Surgery Progress Note ---
General Surgery-Progress Note Subjective Procedure Performed Right Total Knee Resurface Symptoms: improved Objective Last 24 Hour Vital Signs Date Time Temp Pulse Resp B/P (MAP) Pulse Ox O2 Delivery O2 Flow Rate FiO2 11/24/16 08:34 98.0 76 20 100/81 97 Room Air 11/24/16 07:48 99 Room Air 11/24/16 07:48 Room Air 11/24/16 04:00 97.5 97 18 154/86 98 Room Air 11/23/16 20:53 100 Room Air 11/23/16 20:53 Room Air 11/23/16 20:00 98.2 75 18 125/63 96 Room Air 11/23/16 15:50 98.7 83 20 112/61 92 Room Air 11/23/16 11:50 97.8 84 20 111/85 92 Room Air I&O Intake and Output 11/24/16 11/25/16 19:00 07:00 Intake Total 180 ml Balance 180 ml Intake Oral 180 ml Dressing: dry Wound: clean Drains: none Additional Comments Drain removed this AM.Wound clean and dry. Patient up and active with PT/OT. May discharge when cleared by PT, Dr. Porter and when DME / Lovenox are in place available. Dr. Porter following. MARTHA JOHNSON Nov 24, 2016 11:43
[2016-11-24 12:00] VITALS: BP 131/81
[2016-11-24 16:00] VITALS: BP 113/80
--- NOTE | 2016-11-24 16:59 | Critical Care Progress Note ---
Assessment/Plan Assessment/Plan End Stage Degenerative Joint Disease Right Knee Right Total Knee Resurface atrial fib with RVR stable in NSR PLAN dc home Xarelto x 10 days has norco at home f/u with spine Critical Care - Subjective Condition: stable EKG Rhythm: Sinus Rhythm I&O: Intake and Output 11/24/16 11/25/16 19:00 07:00 Intake Total 420 ml Balance 420 ml Intake Oral 420 ml Critical Care - Objective Last 24 Hour Vital Signs Date Time Temp Pulse Resp B/P (MAP) Pulse Ox O2 Delivery O2 Flow Rate FiO2 11/24/16 12:01 98.0 11/24/16 12:00 98.2 82 20 131/81 98 Room Air 11/24/16 08:34 98.0 76 20 100/81 97 Room Air 11/24/16 07:48 99 Room Air 11/24/16 07:48 Room Air 11/24/16 04:00 97.5 97 18 154/86 98 Room Air 11/23/16 20:53 100 Room Air 11/23/16 20:53 Room Air 11/23/16 20:00 98.2 75 18 125/63 96 Room Air Objective: WDWN NAD clear breath sounds bilaterally without rhonchi or wheeze [id number] without MRG NABS nontender no HSM no CCE nonfocal CATRACHITA EARLY Nov 24, 2016 16:59
[2016-11-24] MEDS ORDERED: XARELTO10 MG ORAL (17:18)
--- NOTE | 2016-11-27 16:46 | Discharge Summary ---
Discharge Summary Hospital Course Date of Admission Nov 20, 2016 at 05:47 Date of Discharge Nov 24, 2016 at 19:05 Admitting Diagnosis End Stage Degenerative Joint Disease Right Knee Reason for Hospitalization: elective surgery HPI Lynette Scott is a 61 year old female who was admitted on Nov 20, 2016 at 05:47 for Right Knee Pain Consultations dr Porter -IM Procedures s/p 11/[address] Thibodeaux Total knee resurfacing arthroplasty Hospital Course s/p surgery initially IV hydration pain management, controlled IS spirometry while in the bed neurovascular intact dressing C/D/I wound care initially with Hemovac, output monitored, eventually dc PT eval and Rx fall precautions able to ambulate with PT DVT prophylaxis with Lovenox, upon dc Xarelto x 10 days tolerated diet voided had [place] at home rate controlled , converted to SR cleared for dc fup as outpt with surgeon DME arranged prior to dc FINAL DIAGNOSIS End Stage Degenerative Joint Disease Right Knee Tricompartmental traumatic arthritis right knee severe synovitis R knee, 20-degree varus deformity and a 20-degree flexion contracture R knee A fib with RVR Discharge Medications Continued Medications: Hydrocodone Bit/Acetaminophen 10-325* ([place] 10-325*) 1 Each Tablet 1 TAB ORAL Q6H PRN for For Pain, #10 TAB 0 Refills PRN PAIN Rivaroxaban (Xarelto*) 10 Mg Tablet 10 MG ORAL DAILY, #10 TAB 0 Refills [Amlodipine] () 5 MG PO DA Discharge Condition Upon Discharge: stable Discharge Disposition Patient was discharged to Home (01) Discharge Diagnoses: Discharge Instructions Discharge Instructions Special Instructions I have been assigned to complete a D/C Summary on this account. I was not involved in the patient management Candice Ramos NP ([place]) Nov 27, 2016 16:46
== END 2016-11-24 19:05 | disposition home or self-care (01) | DRG 470 ==
LOC: SDSOVERFLO 05:47 → ICU 15:21 → 3E 11-21 17:16
PROC: 0SRC069 Replacement of Right Knee Joint with Oxidized Zirconium on Polyethylene Synthetic Substitute, Cemented, Open Approach (ICD-10-PCS; principal; 2016-11-20 07:30)
DX: M17.31 Unilateral post-traumatic osteoarthritis, right knee (principal); I10 Essential (primary) hypertension; I48.91 Unspecified atrial fibrillation; M65.9 Synovitis and tenosynovitis, unspecified; Z79.01 Long term (current) use of anticoagulants; M21.161 Varus deformity, not elsewhere classified, right knee; M24.561 Contracture, right knee
CPT/HCPCS: 36415; 80048; 84484; 85007; 85025; 86850; 86900; 86901; 87081; 93005; 94003; 94150; 94760; J2180; J2250; J2405

== ENCOUNTER 2017-04-30 05:38 | Inpatient (IN) | payer OTHER ==
[2017-04-30] VITALS (13 sets, daily range): BP systolic 94–133; BP diastolic 52–75
[~2017-04-30] VITALS: Ht 165.1 cm; Wt 81.6 kg
[~2017-04-30 05:38] MED LIST changes: +XARELTO10 MG ORAL
[2017-04-30] MEDS ORDERED: ATENOLOL25 MG ORAL (06:34)
[2017-04-30] MEDS ORDERED: FAMOTIDINE20 MG ORAL (06:34)
[2017-04-30] MEDS ORDERED: FLUCONAZOLE100 MG ORAL (06:34)
[2017-04-30] MEDS ORDERED: Duramorph PF 5mg/10ml amp ONE (07:06)
[2017-04-30] MEDS ORDERED: NeoSporin Gu Irrig 1ml Amp IRRIG ONE (07:07)
[2017-04-30] MEDS ORDERED: Bacitracin 50000 Units Vial ONE (07:07)
--- NOTE | 2017-04-30 07:14 | Pre-Procedure Note/Attestation ---
Pre-Procedure Note/Attestation Complete Prior to Procedure Planned Procedure: left Procedure Narrative: Patient for Left Knee TKR.Endstage degenerative joint disease left knee. Indications for Procedure Pre-Operative Diagnosis: Endstage degenerative joint disease Left Knee. Attestation I attest that I discussed the nature of the procedure; its benefits; risks and complications; and alternatives (and the risks and benefits of such alternatives ), prior to the procedure, with the patient (or the patient's legal indirect sales representative). I attest that, if there was a reasonable possibility of needing a blood transfusion, the patient (or the patient's legal indirect sales representative) was given the [facility] standardized written summary, pursuant to the Dean Dion Blood Safety Act ([place] Health and Safety Code # 1645, as amended). I attest that I re-evaluated the patient just prior to the surgery and that there has been no change in the patient's H&P, except as documented below: MARTHA JOHNSON Apr 30, 2017 07:14
[2017-04-30] MEDS ORDERED: LR 1000ml ONE (07:30)
[2017-04-30] MEDS ORDERED: Propofol 200mg/20ml IV ONE (07:30)
[2017-04-30] MEDS ORDERED: NS Irrig 1000ml ONE (07:30)
[2017-04-30] MEDS ORDERED: fentaNYL 100 mcg/2 mL IV ONE (07:30)
[2017-04-30] MEDS ORDERED: Sterile Water Irrig 1000ml IRRIG ONE (07:30)
[2017-04-30] MEDS ORDERED: Midazolam 2mg/2ml Inj ONE (07:30)
[2017-04-30] MEDS ORDERED: Ketorolac 30mg Inj ONE (07:30)
[2017-04-30] MEDS ORDERED: LR 1000ml 1,000 ML IVLG SCH (08:20)
--- NOTE | 2017-04-30 08:20 | Anethesia Preoperative Eval ---
Anesthesia Pre-op PMH/ROS General Date of Evaluation: Apr 30, 2017 Time of Evaluation: 07:10 Anesthesiologist: Maame ASA Score: ASA 2 Mallampati Score Class I : Soft palate, uvula, fauces, pillars visible Class II: Soft palate, uvula, fauces visible Class III: Soft palate, base of uvula visible Class IV: Only hard plate visible Mallampati Classification: Class II Surgeon: Morelia Diagnosis: L knee DJD Surgical Procedure: L knee TKA Anesthesia History: none Family History: no anesthesia problems Allergies: Coded Allergies: TRAMADOL (Verified Allergy, Intermediate, 11/20/16) RAPID HEART RATE AND DIFFICULTY BREATHING Medications: see eMAR Past Medical History Cardiovascular: Reports: HTN - stable on meds, Denies: CAD, [place], valve dz, arrhythmia, other Pulmonary: Denies: asthma, COPD, KAIN, other Gastrointestinal/Genitourinary: Reports: GERD, Denies: CRI, ESRD, other Neurologic/Psychiatric: Denies: dementia, CVA, depression/anxiety, TIA, other Endocrine: Denies: DM, hypothyroidism, steroids, other HEENT: Denies: cataract (L), cataract (R), glaucoma, BISHOP PAIUTE (L), BISHOP PAIUTE (R), other Hematology/Immune: Denies: anemia, DVT, bleeding disorder, other Musculoskeletal/Integumentary: Reports: DJD, Denies: OA, RA, DDD, edema, other Other: other - overweight PMH Narrative: as above PSxH Narrative: R knee TKA knee arthroscopy, Shoulder Anesthesia Pre-op Phys. Exam Physician Exam Last Vital Signs Date Time Temp Pulse Resp B/P (MAP) Pulse Ox O2 Delivery O2 Flow Rate FiO2 04/30/17 06:40 97.5 52 20 131/75 97 Room Air 97.5 Constitutional: NAD Neurologic: CN 2-12 intact Cardiovascular: RRR, no M/R/G Respiratory: CTA Gastrointestinal: S/NT/ND Airway Exam Mallampati Score: Class II MO: limited Neck: stiff ROM: limited Teeth: missing Dentures: no upper, no lower Anesthesia Pre-op A/P Labs see chart Studies Pre-op Studies: EKG - NSR Risk Assessment & Plan Assessment: ASA 2 Plan: SAB vs GA Status Change Before Surgery: No Pre-Antibiotics Drug: Ancef 2 gr. Given Within 1 Hr of Incision: Yes Time Given: 07:56 FELICIA JOHN M.D. Apr 30, 2017 08:20
[2017-04-30] MEDS ORDERED: Hydromorphone 0.5mg/0.5ml inj IVP PRN (08:30)
[2017-04-30] MEDS ORDERED: DiphenhydrAMINE 50mg/ml Inj IVP PRN ×2 (08:30→13:00)
[2017-04-30] MEDS ORDERED: Midazolam 2mg/2ml Inj IVP PRN (08:30)
[2017-04-30] MEDS ORDERED: Norco 5mg/325mg tab ORAL PRN (10:15)
[2017-04-30] MEDS ORDERED: Rate Change PCA 1 Each MISC PRN ×2 (10:15→13:00)
[2017-04-30] MEDS ORDERED: PCA Education Pamphlet MISC ONE ×2 (10:15→14:00)
--- NOTE | 2017-04-30 10:18 | Immediate Post-Op Evaluation ---
Immediate Post-Op Evalulation Immediate Post-Op Evalulation Procedure: L knee TKA Date of Evaluation: Apr 30, 2017 Time of Evaluation: 10:17 IV Fluids: 1500 Blood Products: none Estimated Blood Loss: 200 Urinary Output: 150 Blood Pressure Systolic: 108 Blood Pressure Diastolic: 63 Pulse Rate: 54 Respiratory Rate: 20 O2 Sat by Pulse Oximetry: 99 Temperature (Fahrenheit): 97.6 Pain Score (1-10): 1 Nausea: No Vomiting: No Complications none Patient Status: awake, patent, none Hydration Status: adequate FELICIA JOHN M.D. Apr 30, 2017 10:18
--- NOTE | 2017-04-30 10:26 | Operative Note - PDOC ---
Operative Note Operative Note Pre-op Diagnosis: Endstage degenerative joint disease Left Knee. Procedure: Left Total Knee Resurfacing Post-op Diagnosis: same as pre-op Operative Findings: consistent w/pre-op dx studies Surgeon: Morelia Shactor Helper: ROXANNE Johnson Anesthesiologist: Maame Anesthesia: general Specimen: yes Complications: none Condition: stable Estimated Blood Loss: minimal Drains: hemovac Implant(s) used?: Yes - Nate naatural knee MARTHA JOHNSON Apr 30, 2017 10:26
[2017-04-30] MEDS: PCA HYDROmorphone 1mg/ml 30 ML IV PRN (10:43)
[2017-04-30 11:30] LABS: BASOPHILS % (AUTO) 0.7 % (0.0-2.0); EOSINOPHILS % (AUTO) 1.4 % (0.0-3.0); HEMATOCRIT 34.7 % (37.0-47.0); HEMOGLOBIN 11.5 G/DL (12.0-16.0); MEAN CORPUSCULAR VOLUME 88 FL (80-99); MONOCYTES % (AUTO) 3.6 % (1.0-10.0); NEUTROPHILS % (AUTO) 79.3 % (45.0-75.0); PLATELET COUNT 233 K/UL (150-450); RED BLOOD COUNT 3.96 M/UL (4.20-5.40); RED CELL DISTRIBUTION WIDTH 13.1 % (11.6-14.8)
[2017-04-30] MEDS ORDERED: HYDROmorphone 1mg/ml Carpuject SUBQ PRN (13:00)
[2017-04-30] MEDS ORDERED: Milk of Magnesia 30ml Ud ORAL PRN (13:00)
[2017-04-30] MEDS ORDERED: LORazepam 1mg tab ORAL PRN (13:00)
[2017-04-30] MEDS ORDERED: Naloxone 0.4mg/ml Inj IVP PRN (13:00)
--- NOTE | 2017-04-30 13:29 | General Progress Note ---
Assessment/Plan Assessment/Plan Left Total Knee Resurfacing knee pain PLAN 1. incentive spirometry 2. Lovenox 3. PT evaluation and therapy 4. Hydration 5. Pain management 6. discharge once stable with outpatient follow up Subjective Allergies: Coded Allergies: TRAMADOL (Verified Allergy, Intermediate, 11/20/16) RAPID HEART RATE AND DIFFICULTY BREATHING Subjective CARE NOTED ASKED TO FOLLOW UP POST OP Objective Last 24 Hour Vital Signs Date Time Temp Pulse Resp B/P (MAP) Pulse Ox O2 Delivery O2 Flow Rate FiO2 04/30/17 12:30 20 04/30/17 12:00 20 04/30/17 10:43 97.6 04/30/17 10:43 20 04/30/17 10:22 50 20 101/64 100 Nasal Cannula 3.0 04/30/17 10:18 207.7 54 20 99 04/30/17 10:17 54 20 108/63 100 Nasal Cannula 3.0 04/30/17 10:12 97.6 67 20 133/66 100 Nasal Cannula 3.0 97.6 04/30/17 06:40 97.5 52 20 131/75 97 Room Air 97.5 Laboratory Tests 04/30/17 11:15: White Blood Count 11.0H, Red Blood Count 3.96L, Hemoglobin 11.5L, Hematocrit 34.7L, Mean Corpuscular Volume 88, Mean Corpuscular Hemoglobin 29.1, Mean Corpuscular Hemoglobin Concent 33.2, Red Cell Distribution Width 13.1, Platelet Count 233, Mean Platelet Volume 7.2, Neutrophils (%) (Auto) 79.3H, Lymphocytes ( %) (Auto) 15.0L, Monocytes (%) (Auto) 3.6, Eosinophils (%) (Auto) 1.4, Basophils (%) (Auto) 0.7 Height (Feet): 5 Height (Inches): 5.00 Weight (Pounds): 180 Objective WDWN NAD clear breath sounds bilaterally without rhonchi or wheeze [id number] without MRG NABS nontender no HSM no CCE left knee dressing in place nonfocal CATRACHITA EARLY Apr 30, 2017 13:29
[2017-04-30] MEDS: D5 1/2NS w/KCl 20mEq 1,000 ML IV SCH (14:09)
[2017-04-30] MEDS: ceFAZolin sod 1 GM in NS 55 ML IV SCH ×2 (14:10→22:26)
--- NOTE | 2017-04-30 16:08 | Diagnostic Imaging Report ---
Indications: Postoperative status post total knee arthroplasty Technique: Two views of the left knee Comparison: None Findings: Two postoperative views of the left knee demonstrate total knee arthroplasty, good anatomic alignment of the prosthesis. There is a surgical drain in place. . There is postsurgical soft tissue air. Overlying skin francisca. Impression: Postoperative left knee, no unusual features.
[2017-04-30] MEDS: Docusate 100mg cap ORAL SCH ×2 (17:51→17:53)
[2017-04-30] MEDS ORDERED: PCA shift volume MISC SCH (19:00)
[2017-04-30] MEDS: PCA shift volume MISC SCH (19:23)
--- NOTE | 2017-04-30 19:30 | Operative Note - Dictated ---
DATE OF OPERATION: 04/30/2017 FACILITY: [facility]. SURGEON: Aneudy Thibodeaux M.D. RELIEF MASTER: STEFANI Mccallum. ANESTHESIOLOGIST: Clint Isabel M.D. ANESTHESIA: General and spinal. PREOPERATIVE DIAGNOSIS: Posttraumatic arthritis, left knee with significant varus weightbearing deformity involving all three compartments. POSTOPERATIVE DIAGNOSIS: Posttraumatic arthritis, left knee with significant varus weightbearing deformity involving all three compartments. OPERATIVE PROCEDURE: Total knee resurfacing arthroplasty using a Natural Knee with a cemented all-polyethylene size #1 patella with a size #2 femoral component, noncemented and a size #1 tibial component without cement using ingrowth and two 35 mm APR compression screws. The patient also had a lateral retinacular release and patella realignment. The patient was brought to the operating room, placed in the supine position on the operating table. Satisfactory spinal anesthetic was instilled by Dr. Isabel. The patient was then placed supine and her left leg was prepped and draped freely. Bolster was placed outside to the hip to create usual rotation and also posterior to the hip to center the pelvis. The bolster was also used on the table to facilitate maintenance of the knee in flexion during the operation. Once the leg had been prepped and draped freely, it was elevated. It was exsanguinated with an Esmarch bandage and a proximal tourniquet was inflated to 300 mmHg. A medial parapatellar incision was made extending over a distance of 6 inches. The incision was carried down through the skin, subcutaneous tissue reaching the extensor retinaculum of the knee. Exposed was the distal quads, medial retinaculum, medial patella, inferior patellar ligament, and tibial tuberosity. A medial capsular incision was made adjacent to the patella extending up and splitting the quads tendon centrally, extending distally along the medial border of the infrapatellar ligament to the tibial tuberosity. A lateral retinacular release was also performed and the fat pad and scar tissue posterior to the inferior patella ligament were removed so that the patella could be rotated 180 degrees on its distal insertion. Hypertrophic synovial tissue and marginal osteophytes were then removed, and a patellar planer was used to measure a minimal cut of the articular surface of the patella leaving about two-thirds of the substance of the patella intact. The cut surface was planed and anchoring holes were made for a size number #1 patella implant. A 10 mm thickness all-poly implant was templated and checked for range of motion and stability. All were good. The distal femur was then cannulated with an intramedullary guide in order to make the distal, anterior, posterior, and chamfer cuts on the femur. The alignment jig was measured with respect to the weightbearing x-rays that had been taken preoperatively to confirm the amount of the distal as well as the anterior and posterior cuts. Also outriggers were used to check for the weightbearing axis measuring from the center rotation of the hip distally to the center of the ankle joint. The distal femoral, anterior, posterior, chamfer, and notch cuts were then made and a trial femur was inserted with good contact and fit on all surfaces. The tibia was then subluxed forward with a bent knee retractor and the remnants of the medial and lateral meniscus were removed as well as the anterior cruciate ligament. The posterior cruciate ligament was recessed posterior to the posterior edge of the tibia, but left physiologically intact. The tibial alignment jig was then used to adjust for slope, weightbearing alignment and rotation. When all had been accounted for, a cutting block was inserted over the distal tibia and a cut was made that matched with which was measured on the preoperative weightbearing x-rays. The marginal cuts as well as the central peg was then placed in the tibia, and a trial with a tibial base plate with a 9 mm polyethylene insert was then accomplished. There was full extension of the knee with good stability and good overall alignment. Both at full extension, 30 and 40 degrees of flexion, patellar tracking was smooth with a [address]. The tibial and femoral components were then tapped into place. Two 35 mm APR screws were used on the tibial side to secure the tibial base plate. The congruent polyethylene was then tapped into place, then the femur. The patella was last cemented with a half packet of methylmethacrylate. All excess cement was removed. The tourniquet was then released. Bleeding points were coagulated. The knee was copiously irrigated. The medial capsule and medial retinaculum were closed and advancement of the vastus medialis was done over the quads incision. Again range of motion and stability were checked. The subcutaneous and skin were closed separately. A medium Hemovac was left in the defect created by the lateral retinacular release, not under suction initially for gravity drainage. The patient was placed in a bulky compression dressing and then returned to recovery room in good condition. The blood loss was estimated at 100 to 200 mL. Aneudy Thibodeaux M.D. DR: RACHNA JOB#: [id number] CC: ANA CRISTINA
[2017-05-01] MEDS: HYDROcodone/Acetamin 7.5/325 tab ORAL PRN ×2 (01:02→07:44)
[2017-05-01 01:04] VITALS: BP 106/58
[2017-05-01 04:00] VITALS: BP 110/60
[2017-05-01] MEDS: ceFAZolin sod 1 GM in NS 55 ML IV SCH ×3 (05:07→21:32)
[2017-05-01] MEDS: D5 1/2NS w/KCl 20mEq 1,000 ML IV SCH ×2 (05:08→17:45)
[2017-05-01 06:45] LABS: BASOPHILS % (AUTO) 1.7 % (0.0-2.0); EOSINOPHILS % (AUTO) 4.9 % (0.0-3.0); HEMATOCRIT 27.5 % (37.0-47.0); HEMOGLOBIN 9.1 G/DL (12.0-16.0); LYMPHOCYTES % (AUTO) 37.7 % (20.0-45.0); MEAN CORPUSCULAR VOLUME 88 FL (80-99); MONOCYTES % (AUTO) 6.6 % (1.0-10.0); NEUTROPHILS % (AUTO) 49.1 % (45.0-75.0); PLATELET COUNT 149 K/UL (150-450); RED BLOOD COUNT 3.12 M/UL (4.20-5.40); RED CELL DISTRIBUTION WIDTH 12.4 % (11.6-14.8); WHITE BLOOD COUNT 4.7 K/UL (4.8-10.8)
--- NOTE | 2017-05-01 06:58 | 48 Hour Post Anesthesia Eval ---
Post Anesthesia Evaluation Procedure: L knee TKA Date of Evaluation: May 01, 2017 Time of Evaluation: 09:40 Blood Pressure Systolic: 102 0: 59 Pulse Rate: 74 Respiratory Rate: 17 Temperature (Fahrenheit): 99 O2 Sat by Pulse Oximetry: 100 Airway: patent Nausea: No Vomiting: No Pain Intensity: 3 If pain is > 6 Comment: Has not ambulated yet. Instructed her to use GENERAL INTERNAL MEDICINE PHYSICIAN before ambulating. Hydration Status: adequate Cardiopulmonary Status: Stable Mental Status/LOC: patient returned to baseline Follow-up Care/Observations: As per surgery Post-Anesthesia Complications: No anesthetic complication Follow-up care needed: N/A LAVERN MCDONOUGH M.D. May 01, 2017 06:57
[2017-05-01] MEDS: PCA shift volume MISC SCH ×2 (07:00→19:25)
[2017-05-01] MEDS: Docusate 100mg cap ORAL SCH ×3 (07:44→17:45)
[2017-05-01 08:00] VITALS: BP 103/60
[2017-05-01] MEDS: PCA HYDROmorphone 1mg/ml 30 ML IV PRN (11:15)
[2017-05-01 11:58] VITALS: BP 104/58
[2017-05-01 16:00] VITALS: BP 109/56
[2017-05-01] MEDS ORDERED: D5 1/2NS w/KCl 20mEq 1,000 ML IV SCH (16:30)
--- NOTE | 2017-05-01 17:12 | General Progress Note ---
Assessment/Plan Assessment/Plan Left Total Knee Resurfacing knee pain PLAN 1. incentive spirometry 2. Lovenox ? 3. PT evaluation and therapy 4. Hydration 5. Pain management 6. discharge once stable with outpatient follow up Subjective Allergies: Coded Allergies: TRAMADOL (Verified Allergy, Intermediate, 11/20/16) RAPID HEART RATE AND DIFFICULTY BREATHING Subjective CARE NOTED HAS NAUSEA Objective Last 24 Hour Vital Signs Date Time Temp Pulse Resp B/P (MAP) Pulse Ox O2 Delivery O2 Flow Rate FiO2 05/01/17 16:00 97.5 83 19 109/56 96 97.5 05/01/17 16:00 18 05/01/17 12:00 18 05/01/17 11:58 98.0 75 19 104/58 96 98.0 05/01/17 08:06 18 05/01/17 08:00 97.9 79 18 103/60 97 97.9 05/01/17 06:57 210.2 74 17 100 05/01/17 04:45 18 05/01/17 01:04 99.0 74 17 106/58 100 Nasal Cannula 3.0 99.0 05/01/17 00:04 18 04/30/17 20:00 18 04/30/17 20:00 97.5 71 18 124/67 100 Nasal Cannula 3.0 97.5 Intake and Output 04/30/17 05/01/17 19:00 07:00 Intake Total 2230 ml 1100 ml Output Total 640 ml 430 ml Balance 1590 ml 670 ml Intake Oral 300 ml 200 ml IV Total 1930 ml 900 ml Output Urine Total 350 ml 340 ml Drainage Total 90 ml 90 ml Estimated Blood Loss 200 ml Laboratory Tests 05/01/17 06:30: White Blood Count 4.7#L, Red Blood Count 3.12L, Hemoglobin 9.1L, Hematocrit 27.5L, Mean Corpuscular Volume 88, Mean Corpuscular Hemoglobin 29.2, Mean Corpuscular Hemoglobin Concent 33.2, Red Cell Distribution Width 12.4, Platelet Count 149L, Mean Platelet Volume 7.0, Neutrophils (%) (Auto) 49.1, Lymphocytes ( %) (Auto) 37.7, Monocytes (%) (Auto) 6.6, Eosinophils (%) (Auto) 4.9H, Basophils (%) (Auto) 1.7 Height (Feet): 5 Height (Inches): 5.00 Weight (Pounds): 180 Objective WDWN NAD clear breath sounds bilaterally without rhonchi or wheeze [id number] without MRG NABS nontender no HSM no CCE left knee dressing in place nonfocal CATRACHITA EARLY May 01, 2017 17:12
[2017-05-01 20:09] VITALS: BP 109/58
[2017-05-02 00:14] VITALS: BP 114/62
[2017-05-02] MEDS: D5 1/2NS w/KCl 20mEq 1,000 ML IV SCH ×3 (04:06→19:19)
[2017-05-02 04:41] VITALS: BP 121/69
[2017-05-02] MEDS: ceFAZolin sod 1 GM in NS 55 ML IV SCH ×3 (05:05→22:20)
[2017-05-02] MEDS: PCA shift volume MISC SCH ×2 (07:00→19:00)
[2017-05-02 07:59] LABS: BASOPHILS % (AUTO) 0.7 % (0.0-2.0); EOSINOPHILS % (AUTO) 3.9 % (0.0-3.0); HEMATOCRIT 25.9 % (37.0-47.0); HEMOGLOBIN 8.5 G/DL (12.0-16.0); LYMPHOCYTES % (AUTO) 34.6 % (20.0-45.0); MEAN CORPUSCULAR VOLUME 87 FL (80-99); MONOCYTES % (AUTO) 6.8 % (1.0-10.0); PLATELET COUNT 143 K/UL (150-450); RED BLOOD COUNT 2.97 M/UL (4.20-5.40); RED CELL DISTRIBUTION WIDTH 12.4 % (11.6-14.8)
[2017-05-02 08:00] VITALS: BP 125/67
[2017-05-02] MEDS: Docusate 100mg cap ORAL SCH ×3 (08:38→19:12)
--- NOTE | 2017-05-02 10:36 | General Progress Note ---
Assessment/Plan Assessment/Plan Left Total Knee Resurfacing knee pain PLAN 1. incentive spirometry 2. Lovenox to start 3. PT evaluation and therapy 4. Hydration 5. Pain management 6. discharge once stable with outpatient follow up Subjective Allergies: Coded Allergies: TRAMADOL (Verified Allergy, Intermediate, 11/20/16) RAPID HEART RATE AND DIFFICULTY BREATHING Subjective improved Objective Last 24 Hour Vital Signs Date Time Temp Pulse Resp B/P (MAP) Pulse Ox O2 Delivery O2 Flow Rate FiO2 05/02/17 08:00 98.2 86 20 125/67 98 Room Air 98.2 05/02/17 04:43 94 Room Air 05/02/17 04:41 98.2 91 18 121/69 94 98.2 05/02/17 04:00 18 05/02/17 01:43 95 Room Air 05/02/17 00:14 98.4 73 18 114/62 95 98.4 05/02/17 00:00 18 05/01/17 20:39 18 05/01/17 20:10 95 Room Air 05/01/17 20:09 98.5 78 17 109/58 95 98.5 05/01/17 16:00 97.5 83 19 109/56 96 97.5 05/01/17 16:00 18 05/01/17 12:00 18 05/01/17 11:58 98.0 75 19 104/58 96 98.0 Intake and Output 05/01/17 05/02/17 19:00 07:00 Intake Total 1280 ml 1460 ml Output Total 1210 ml 160 ml Balance 70 ml 1300 ml Intake Oral 880 ml 360 ml IV Total 400 ml 1100 ml Output Urine Total 1050 ml Drainage Total 160 ml 160 ml # Voids 2 8 Laboratory Tests 05/02/17 05:55: White Blood Count 5.0, Red Blood Count 2.97L, Hemoglobin 8.5L, Hematocrit 25.9L , Mean Corpuscular Volume 87, Mean Corpuscular Hemoglobin 28.6, Mean Corpuscular Hemoglobin Concent 32.8, Red Cell Distribution Width 12.4, Platelet Count 143L, Mean Platelet Volume 7.7, Neutrophils (%) (Auto) 54.0, Lymphocytes ( %) (Auto) 34.6, Monocytes (%) (Auto) 6.8, Eosinophils (%) (Auto) 3.9H, Basophils (%) (Auto) 0.7 Height (Feet): 5 Height (Inches): 5.00 Weight (Pounds): 180 Objective WDWN NAD clear breath sounds bilaterally without rhonchi or wheeze [id number] without MRG NABS nontender no HSM no CCE left knee dressing in place nonfocal CATRACHITA EARLY May 02, 2017 10:36
[2017-05-02] MEDS ORDERED: Norco 5mg/325mg tab ORAL PRN (11:00)
[2017-05-02 12:00] VITALS: BP 118/62
--- NOTE | 2017-05-02 12:11 | General Surgery Progress Note ---
General Surgery-Progress Note Subjective Procedure Performed Left Total Knee Resurfacing Symptoms: improved Additional Comments Patient doing well with physical therapy. Objective Last 24 Hour Vital Signs Date Time Temp Pulse Resp B/P (MAP) Pulse Ox O2 Delivery O2 Flow Rate FiO2 05/02/17 11:55 98.2 05/02/17 08:00 98.2 86 20 125/67 98 Room Air 98.2 05/02/17 04:43 94 Room Air 05/02/17 04:41 98.2 91 18 121/69 94 98.2 05/02/17 04:00 18 05/02/17 01:43 95 Room Air 05/02/17 00:14 98.4 73 18 114/62 95 98.4 05/02/17 00:00 18 05/01/17 20:39 18 05/01/17 20:10 95 Room Air 05/01/17 20:09 98.5 78 17 109/58 95 98.5 05/01/17 16:00 97.5 83 19 109/56 96 97.5 05/01/17 16:00 18 I&O Intake and Output 05/01/17 05/02/17 19:00 07:00 Intake Total 1280 ml 1460 ml Output Total 1210 ml 160 ml Balance 70 ml 1300 ml Intake Oral 880 ml 360 ml IV Total 400 ml 1100 ml Output Urine Total 1050 ml Drainage Total 160 ml 160 ml # Voids 2 8 Dressing: dry Wound: clean Drains: hemovac Laboratory Tests Test 05/02/17 05:55 White Blood Count 5.0 K/UL (4.8-10.8) Red Blood Count 2.97 M/UL (4.20-5.40) L Hemoglobin 8.5 G/DL (12.0-16.0) L Hematocrit 25.9 % (37.0-47.0) L Mean Corpuscular Volume 87 FL (80-99) Mean Corpuscular Hemoglobin 28.6 PG (27.0-31.0) Mean Corpuscular Hemoglobin Concent 32.8 G/DL (32.0-36.0) Red Cell Distribution Width 12.4 % (11.6-14.8) Platelet Count 143 K/UL (150-450) L Mean Platelet Volume 7.7 FL (6.5-10.1) Neutrophils (%) (Auto) 54.0 % (45.0-75.0) Lymphocytes (%) (Auto) 34.6 % (20.0-45.0) Monocytes (%) (Auto) 6.8 % (1.0-10.0) Eosinophils (%) (Auto) 3.9 % (0.0-3.0) H Basophils (%) (Auto) 0.7 % (0.0-2.0) Additional Comments Good pulse in left leg. 5/5 strength in low leg. Drain [address] German huston. MARTHA JOHNSON May 02, 2017 12:11
[2017-05-02] MEDS ORDERED: PCA HYDROmorphone 1mg/ml 30 ML IV PRN ×2 (14:15→14:30)
[2017-05-02] MEDS ORDERED: Rate Change PCA 1 Each MISC PRN ×2 (14:15→14:30)
[2017-05-02] MEDS ORDERED: PCA Education Pamphlet MISC ONE (14:15)
[2017-05-02] MEDS ORDERED: Naloxone 2 MG in D5W 500ml 498 ML IV PRN (14:15)
[2017-05-02] MEDS ORDERED: HYDROmorphone 1mg/ml Carpuject SUBQ PRN (14:30)
[2017-05-02] MEDS ORDERED: Naloxone 0.4mg/ml Inj IVP PRN (14:30)
[2017-05-02] MEDS ORDERED: DiphenhydrAMINE 50mg/ml Inj IVP PRN (14:30)
[2017-05-02 16:00] VITALS: BP 107/75
[2017-05-02] MEDS ORDERED: PCA shift volume MISC SCH (19:00)
[2017-05-02] MEDS: Norco 5mg/325mg tab ORAL PRN (19:12)
[2017-05-02 20:00] VITALS: BP 118/67
[2017-05-03 00:10] VITALS: BP 124/73
[2017-05-03] MEDS: Norco 5mg/325mg tab ORAL PRN ×3 (00:42→16:02)
[2017-05-03 04:00] VITALS: BP 117/66
[2017-05-03] MEDS: ceFAZolin sod 1 GM in NS 55 ML IV SCH (06:44)
[2017-05-03 06:46] LABS: BASOPHILS % (AUTO) 1.4 % (0.0-2.0); EOSINOPHILS % (AUTO) 4.1 % (0.0-3.0); HEMATOCRIT 24.5 % (37.0-47.0); HEMOGLOBIN 8.4 G/DL (12.0-16.0); LYMPHOCYTES % (AUTO) 39.9 % (20.0-45.0); MEAN CORPUSCULAR VOLUME 88 FL (80-99); MONOCYTES % (AUTO) 6.8 % (1.0-10.0); NEUTROPHILS % (AUTO) 47.9 % (45.0-75.0); PLATELET COUNT 156 K/UL (150-450); RED CELL DISTRIBUTION WIDTH 12.8 % (11.6-14.8); WHITE BLOOD COUNT 5.4 K/UL (4.8-10.8)
[2017-05-03] MEDS: D5 1/2NS w/KCl 20mEq 1,000 ML IV SCH (06:47)
[2017-05-03] MEDS: PCA shift volume MISC SCH (07:00)
[2017-05-03] MEDS: Docusate 100mg cap ORAL SCH ×2 (07:57→16:02)
--- NOTE | 2017-05-03 07:57 | General Progress Note ---
Assessment/Plan Assessment/Plan Left Total Knee Resurfacing knee pain constipation nausea PLAN 1. incentive spirometry 2. Lovenox daily and Xarelto on dc x 10 days 3. PT evaluation and therapy 4. Hydration 5. Pain management 6. discharge once stable with outpatient follow up Subjective Allergies: Coded Allergies: TRAMADOL (Verified Allergy, Intermediate, 11/20/16) RAPID HEART RATE AND DIFFICULTY BREATHING Subjective has nausea and constipation walking Objective Last 24 Hour Vital Signs Date Time Temp Pulse Resp B/P (MAP) Pulse Ox O2 Delivery O2 Flow Rate FiO2 05/03/17 04:00 18 05/03/17 04:00 98.1 87 18 117/66 98 Room Air 98.1 05/03/17 00:10 97.8 92 17 124/73 95 Room Air 97.8 05/03/17 00:00 18 05/02/17 20:00 97.7 95 17 118/67 93 Room Air 97.7 05/02/17 20:00 18 05/02/17 19:12 98.0 05/02/17 16:00 18 05/02/17 16:00 98.0 96 18 107/75 98 98.0 05/02/17 12:50 98.4 05/02/17 12:00 18 05/02/17 12:00 98.4 94 20 118/62 98 Room Air 98.4 05/02/17 11:55 98.2 05/02/17 08:00 18 05/02/17 08:00 98.2 86 20 125/67 98 Room Air 98.2 Intake and Output 05/02/17 05/03/17 19:00 07:00 Intake Total 1080 ml 180 ml Output Total 300 ml Balance 1080 ml -120 ml Intake Oral 1080 ml 180 ml Output Urine Total 300 ml # Voids 5 2 Laboratory Tests 05/03/17 06:00: White Blood Count 5.4, Red Blood Count 2.80L, Hemoglobin 8.4L, Hematocrit 24.5L , Mean Corpuscular Volume 88, Mean Corpuscular Hemoglobin 29.9, Mean Corpuscular Hemoglobin Concent 34.1, Red Cell Distribution Width 12.8, Platelet Count 156, Mean Platelet Volume 7.5, Neutrophils (%) (Auto) 47.9, Lymphocytes (% ) (Auto) 39.9, Monocytes (%) (Auto) 6.8, Eosinophils (%) (Auto) 4.1H, Basophils (%) (Auto) 1.4 Height (Feet): 5 Height (Inches): 5.00 Weight (Pounds): 180 Objective WDWN NAD clear breath sounds bilaterally without rhonchi or wheeze [id number] without MRG NABS nontender no HSM no CCE left knee dressing in place nonfocal CATRACHITA EARLY May 03, 2017 07:57
[2017-05-03 08:00] VITALS: BP 131/71
[2017-05-03] MEDS ORDERED: Bisacodyl EC 5mg tab ORAL PRN ×2 (08:00→08:30)
[2017-05-03] MEDS ORDERED: Milk of Magnesia 30ml Ud ORAL PRN (08:00)
[2017-05-03] MEDS ORDERED: Enoxaparin 40mg Inj SUBQ SCH (09:00)
--- NOTE | 2017-05-03 09:08 | General Surgery Progress Note ---
General Surgery-Progress Note Subjective Procedure Performed Left Total Knee Resurfacing Symptoms: improved Objective Last 24 Hour Vital Signs Date Time Temp Pulse Resp B/P (MAP) Pulse Ox O2 Delivery O2 Flow Rate FiO2 05/03/17 08:00 98.4 91 18 131/71 97 98.4 05/03/17 08:00 18 05/03/17 04:00 18 05/03/17 04:00 98.1 87 18 117/66 98 Room Air 98.1 05/03/17 00:10 97.8 92 17 124/73 95 Room Air 97.8 05/03/17 00:00 18 05/02/17 20:00 97.7 95 17 118/67 93 Room Air 97.7 05/02/17 20:00 18 05/02/17 19:12 98.0 05/02/17 16:00 18 05/02/17 16:00 98.0 96 18 107/75 98 98.0 05/02/17 12:50 98.4 05/02/17 12:00 18 05/02/17 12:00 98.4 94 20 118/62 98 Room Air 98.4 05/02/17 11:55 98.2 I&O Intake and Output 05/02/17 05/03/17 19:00 07:00 Intake Total 1080 ml 180 ml Output Total 300 ml Balance 1080 ml -120 ml Intake Oral 1080 ml 180 ml Output Urine Total 300 ml # Voids 5 2 Dressing: dry Wound: clean Drains: hemovac Laboratory Tests Test 05/03/17 06:00 White Blood Count 5.4 K/UL (4.8-10.8) Red Blood Count 2.80 M/UL (4.20-5.40) L Hemoglobin 8.4 G/DL (12.0-16.0) L Hematocrit 24.5 % (37.0-47.0) L Mean Corpuscular Volume 88 FL (80-99) Mean Corpuscular Hemoglobin 29.9 PG (27.0-31.0) Mean Corpuscular Hemoglobin Concent 34.1 G/DL (32.0-36.0) Red Cell Distribution Width 12.8 % (11.6-14.8) Platelet Count 156 K/UL (150-450) Mean Platelet Volume 7.5 FL (6.5-10.1) Neutrophils (%) (Auto) 47.9 % (45.0-75.0) Lymphocytes (%) (Auto) 39.9 % (20.0-45.0) Monocytes (%) (Auto) 6.8 % (1.0-10.0) Eosinophils (%) (Auto) 4.1 % (0.0-3.0) H Basophils (%) (Auto) 1.4 % (0.0-2.0) Additional Comments Not reflected in I/O's: wound drain output was 25 cc overnight, but had been 160 previous 24 hours. Wound still somewhat 'boggy'. Will reassess later this PM and may pull drain. would like to evacuate as much remaining fluid as possible. Dr. Porter following and has concerns about ongoing nausea and constipation. MARTHA JOHNSON May 03, 2017 09:07
[2017-05-03 12:00] VITALS: BP 113/77
[2017-05-03 16:00] VITALS: BP 139/74
[2017-05-03] MEDS ORDERED: ZOFRAN4 M3 ORAL (17:40)
[2017-05-03] MEDS ORDERED: XARELTO10 MG ORAL (17:41)
--- NOTE | 2017-05-04 13:30 | Discharge Summary ---
Discharge Summary Hospital Course Date of Admission Apr 30, 2017 at 05:38 Date of Discharge May 03, 2017 at 19:15 Admitting Diagnosis HPI Lynette Ramos is a 61 year old female who was admitted on Apr 30, 2017 at 05:38 for Left Knee Pain Hospital Course [id number] Discharge Discharge Disposition Patient was discharged to Home (01) Discharge Diagnoses: Gloria Knight NP May 04, 2017 13:29
[2017-05-04] MEDS ORDERED: Norco 5mg/325mg tab ORAL PRN (14:30)
[2017-05-04] MEDS ORDERED: HYDROmorphone 1mg/ml Carpuject SUBQ PRN (14:30)
--- NOTE | 2017-05-05 03:00 | Discharge Summary 2 SIG ---
DATE OF ADMISSION: 04/30/2017 DATE OF DISCHARGE: 05/03/2017 SURGEON: Aneudy Thibodeaux M.D. BRIEF HOSPITAL COURSE: The patient is a 61-year-old female, who was injured while working. Injury was caused by repetitive use. As a result, she injured her right knee and notes radiation of pain. She had underwent physical therapy and pain management and cortisone injection. She was admitted on 04/30/2017 and underwent total knee resurfacing. She tolerated the procedure well. Postoperatively, she was admitted for pain management. She was placed on Lovenox for DVT prophylaxis and was continued on IV hydration. She was encouraged use of incentive spirometry. She was continued on [employer] Dilaudid. She underwent PT and OT and had been doing well with physical therapy with good pulse in the left leg and 5/5 strength. Drained 160 overnight. The following day, wound drain was 25 mL. Hemovac was eventually discontinued and the patient was cleared for discharge home to continue Xarelto for 10 days and p.r.n. Zofran for nausea. FINAL DIAGNOSES: 1. Left knee pain, status post left total knee resurfacing. 2. Constipation. 3. Nausea. DISPOSITION: The patient was discharged home. DISCHARGE MEDICATIONS: Continue with Xarelto 10 mg daily for 10 days with p.r.n. Zofran q.6 h. DISCHARGE INSTRUCTIONS: Followup with surgery in a week. Keep surgical incision clean and dry. Aristides Porter M.D. I have been assigned to dictate discharge summary on this account and I was not involved in the patient's management. Gloria Knight N.P. DR: Robert JOB#: [id number] CC: ANA CRISTINA
== END 2017-05-03 19:15 | disposition home health service (06) | DRG 470 ==
LOC: SDSOVERFLO 05:38 → 3E 11:57
PROC: 0QSF0ZZ Reposition Left Patella, Open Approach (ICD-10-PCS; principal; 2017-04-30 07:30)
PROC: 0SRD0JA Replacement of Left Knee Joint with Synthetic Substitute, Uncemented, Open Approach (ICD-10-PCS; principal; 2017-04-30 07:30)
DX: M17.32 Unilateral post-traumatic osteoarthritis, left knee (principal); I10 Essential (primary) hypertension; K59.00 Constipation, unspecified; R11.0 Nausea; Z87.828 Personal history of other (healed) physical injury and trauma; Z86.718 Personal history of other venous thrombosis and embolism; Z96.651 Presence of right artificial knee joint
CPT/HCPCS: 36415; 85025; 86850; 86900; 86901; 87081; 94003; 94150; J2250; J2405